=== PATIENT | female | born 1985 | race Caucasian/White ===

== ENCOUNTER 2022-04-15 13:43 | Emergency (ER) | payer OTHER, SELFPAY ==
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
--- NOTE | ~2022-04-15 | CT_ITS ---
EXAMINATION: CT brain wo con DATE: 04/15/2022 15:35 INDICATION: Headache. TECHNIQUE: Computed tomography (CT) of the head was performed without intravenous contrast. The mA wa s adjusted according to patient size. Iterative reconstruction technique was employed. The dose-lengt h product was 529.67 mGy-cm. COMPARISON: None FINDINGS: There is no intracranial hemorrhage, acute infarction, or abnormal intracranial mass lesion . The ventricles are normal in size. The orbits are normal. There is mild mucosal thickening in the p aranasal sinuses. The mastoid air cells are normal. IMPRESSION: 1. Normal brain. Reviewed, dictated and finalized at location A. IMPRESSION: 1. Normal brain.
[2022-04-15 14:07] VITALS: BP 150/70; PULSE 77; RESP 16; TEMP 36.6; O2SAT 100
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
--- NOTE | 2022-04-15 16:45 | PC.NURSE ---
Pt left without prior to receiving discharge information.
== END 2022-04-15 16:48 | disposition home or self-care (01) ==
PROVIDERS: Emergency Provider Nurse Practitioner Family
DX: G44.319 Acute post-traumatic headache, not intractable (principal); S13.4XXA Sprain of ligaments of cervical spine, initial encounter; V47.6XXA Car passenger injured in collision with fixed or stationary object in traffic accident, initial encounter
CPT/HCPCS: 70450; 72125; 99284